=== PATIENT | female | born 1985 | race Caucasian/White ===

== ENCOUNTER 2024-09-14 09:40 | Emergency (ER) | payer SELFPAY ==
[~2024-09-14] VITALS: Ht 162.6 cm; Wt 81.6 kg
[2024-09-14 09:44] VITALS: O2SAT 100
[2024-09-14] MEDS: LIDOCAINE HCL/PF 1% 10 MG/ML 5ML VIAL INFIL ONE ×2 (12:30)
[2024-09-14] MEDS: BACITRACIN ZINC OINT UDPKT TOP ONE (12:30)
[2024-09-14] MEDS: LIDOCAINE HCL/PF 1% 10 MG/ML 5ML VIAL INFIL SCH (12:30)
[2024-09-14] MEDS: TETANUS, DIPHTHERIA, PERTUSSIS VAC/PF 0.5ML (>10YR OLD) IM ONE (12:31)
[2024-09-14 12:55] VITALS: BP 138/71; PULSE 80; RESP 18; TEMP 36.78072; O2SAT 100
== END 2024-09-14 13:07 | disposition home or self-care (01) ==
LOC: ER 09:55
DX: S71.112A Laceration without foreign body, left thigh, initial encounter (principal); W26.0XXA Contact with knife, initial encounter; Y93.89 Activity, other specified; Y92.89 Other specified places as the place of occurrence of the external cause; Y99.8 Other external cause status
CPT/HCPCS: 99284; 12034; J3490; 99282